=== PATIENT | female | born 1950 | race Caucasian/White ===

== ENCOUNTER → 2017-03-05 | Outpatient (CLI) | payer BC ==
--- NOTE | 2017-03-05 09:50 | US ---
EXAMINATION TYPE: US thyroid st tissue head/neck DATE OF EXAM: 03/05/2017 COMPARISON: NONE CLINICAL HISTORY: R59.1 Lymphadenopathy. Pt states palpable lumps submandibular midline to Multiple hypoechoic, enlarged lymph nodes (up to 4) measured where pt feels palpable lumps, largest AP= 1.2 cm IMPRESSION: Left submandibular adenopathy. Consider contrast enhanced CT for further evaluation.
== END | disposition home or self-care (01) ==
LOC: RADUSWWP 09:03
PROVIDERS: ATTEND Family Medicine
DX: R59.1 Generalized enlarged lymph nodes (principal)
CPT/HCPCS: 76536